=== PATIENT | female | born 1960 | race Caucasian/White ===

== ENCOUNTER 2019-02-07 11:30 | Emergency (ER) | payer BC, OTHER ==
[2019-02-07 11:47] VITALS: BP 160/102
--- NOTE | 2019-02-07 11:58 | EDM.PDOC ---
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 She slipped on ice and fell forward and landed on her left knee, felt some sharp pain in her left pelvis and the left buttock posteriorly. the pain has gradually got worse. She [place] been able to walk. but hurts over the lateral aspect of the pelvis and left buttock to bear weight on the left side. She does claim the pain radiates from the posterior buttock into the posterolateral aspect of the left thigh. No tingling, numbness, weakness or loss of function in the left lower extremity. No incontinence of stool or urine. No saddle numbness. Onset: Gradual Onset Date: 02/02/19 Location: Reports: Back, Pelvis Quality: Reports: Ache Severity: Moderate Improves with: Reports: Immobilization, Rest Worsens with: Reports: Movement Associated Symptoms: Denies: Confusion, Chest Pain, Cough, Diaphoresis, Fever/ Chills, Malaise, Nausea/Vomiting, Rash, Seizure, Shortness of Breath, Syncope, Weakness Treatments CATERING CHEF: Reports: Other (see below) Other Treatments CATERING CHEF: motrin 800mg bid - Related Data Allergies Allergy/AdvReac Type Severity Reaction Status Date / Time Prednisone Allergy Bleeding Uncoded 06/26/16 13:51 Past Medical History HEENT History: Reports: Other (See Below) Other HEENT History: nearsightedness Cardiovascular History: Reports: Hypertension Other Cardiovascular History: problems with her mitral valve Respiratory History: Reports: COPD Other Musculoskeletal History: cartilage removoed from RT arm Neurological History: Reports: Migraines Dermatologic History: Reports: Seborrheic Dermatitis - Past Surgical History HEENT Surgical History: Reports: None Review of Systems - Review of Systems Review Of Systems: See Below Constitutional: Denies: Chills, Fever Eyes: Denies: Vision Change Ears: Denies: Pain Nose: Denies: Clots, Congestion, Epistaxis Mouth/Throat: Denies: Bleeding Respiratory: Denies: Shortness of Breath, Cough, Sputum Cardiovascular: Denies: Chest Pain, Syncope GI/Abdominal: Denies: Nausea, Vomiting Genitourinary: Denies: Dysuria Musculoskeletal: Reports: Back Pain, Muscle Pain. Denies: Shoulder Pain, Foot Pain, Joint Swelling Skin: Denies: Bruising, Pruritis, Rash Neurological: Denies: Confusion, Numbness, Tingling, Difficulty Walking, Weakness ED EXAM, GENERAL - Physical Exam Exam: See Below Exam Limited By: No Limitations General Appearance: Alert, WD/WN, No Apparent Distress Eye Exam: Bilateral Eye: EOMI, PERRL Ears: Normal External Exam, Normal Canal, Hearing Grossly Normal, Normal TMs Ear Exam: Bilateral Ear: Auricle Normal, Canal Normal, TM normal Nose: Normal Inspection, Normal Mucosa, No Blood Throat/Mouth: Normal Inspection, Normal Lips, Normal Teeth, Normal Gums, Normal Oropharynx, Normal Voice, No Airway Compromise Head: Atraumatic, Normocephalic Neck: Normal Inspection, Supple, Non-Tender, Full Range of Motion Respiratory/Chest: No Respiratory Distress, Lungs Clear, Normal Breath Sounds, No Accessory Muscle Use, Chest Non-Tender Cardiovascular: Normal Peripheral Pulses, Regular Rate, Rhythm, No Edema, No Gallop, No JVD, No Murmur, No Rub Back Exam: Normal Inspection, Decreased Range of Motion, Muscle Spasm (left buttock), Other (pt is tender all over the lateral pelvis and over the sacrum to palpation. ). No: CVA Tenderness (R), CVA Tenderness (L), Paraspinal Tenderness, Vertebral Tenderness Neurological: Alert, Oriented, Normal Gait Course - Vital Signs Text/Narrative:: The fall happened 5 days ago. Patient has been walking and weight bearing. The pain is diffused over the left buttock and sacral region.Her pelvis x-ray and her sacral x-ray are negative for fracture. Pelvis x-ray does show arthritic changes in her left hip. she probably has left gluteal muscle spasms.Pt started on diclofenac sodium 50mg 3 times daily and Flexeril 10mg at bedtime for 1 wk. Advised intermittent heat. Pain should gradually improve. I have advised patient to followup with Ortho regarding the arthritis of left hip joint. Last Recorded V/S: Last Vital Signs Temp 96 F 02/07/19 11:46 Pulse 100 02/07/19 11:46 Resp 20 02/07/19 11:46 BP 160/102 H 02/07/19 11:46 Pulse Ox 99 02/07/19 11:46 - Orders/Labs/Meds Orders: Active Orders 24 hr Category Date Time Status Pelvis 1V or 2V [CR] Stat Exams 02/07/19 11:42 Ordered Sacrum Coccyx Min 2V [CR] Stat Exams 02/07/19 11:42 Ordered Departure - Departure Time of Disposition: 12:45 Disposition: Home, Self-Care 01 Condition: Fair Clinical Impression: Muscle strain of left gluteal region - Discharge Information *PRESCRIPTION DRUG MONITORING PROGRAM REVIEWED*: Not Applicable *COPY OF PRESCRIPTION DRUG MONITORING REPORT IN PATIENT MADONNA: Not Applicable Instructions: Muscle Cramps and Spasms, [id number], Cyclobenzaprine tablets, Diclofenac immediate-release tablets Referrals: PCP,None [Primary Care Provider] - Forms: ED Department Discharge Additional Instructions: Will fax note for patient to be off of work to [employer]. Patient to call with fax # Care Plan Goals: Take flexaril 10mg at bedtime for 10 days. Take diclofenac 50 mg 3 x day (no ibuprofen or naproxen), intermittent heat 20 minutes of an hour every 3 to 4 hours. Do not sleep on heating pad. Follow up with orthopedist regarding left hip arthritis. - Problem List & Annotations (1) Muscle strain of left gluteal region SNOMED Code(s): 76257915 Code(s): S76.012A - STRAIN OF MUSCLE, FASCIA AND TENDON OF LEFT HIP, INIT ENCNTR Status: Acute - Problem List Review Problem List Initiated/Reviewed/Updated: Yes - My Orders Last 24 Hours: My Active Orders 02/07/19 11:42 Pelvis 1V or 2V [CR] Stat Sacrum Coccyx Min 2V [CR] Stat - Assessment/Plan Last 24 Hours: My Active Orders 02/07/19 11:42 Pelvis 1V or 2V [CR] Stat Sacrum Coccyx Min 2V [CR] Stat Assessment:: left gluteal muscle spasm Plan: The fall happened 5 days ago. Patient has been walking and weight bearing. The pain is diffused over the left buttock and sacral region.Her pelvis x-ray and her sacral x-ray are negative for fracture. Pelvis x-ray does show arthritic changes in her left hip. she probably has left gluteal muscle spasms.Pt started on diclofenac sodium 50mg 3 times daily and Flexeril 10mg at bedtime for 1 wk. Advised intermittent heat. Pain should gradually improve. I have advised patient to followup with Ortho regarding the arthritis of left hip joint.
--- NOTE | 2019-02-07 15:47 | CR ---
Date of Service: 02/07/19 Clinical Data: AP PELVIS: There are moderate osteoarthritic changes involving the hip joints bilaterally. There are degenerative changes involving the SI joints and symphysis pubis. There is degenerative disk disease at multiple levels in the lower lumbar spine. No acute abnormalities. No focal lytic or blastic bone lesions. [id number] [facility]
--- NOTE | 2019-02-07 15:51 | CR ---
Date of Service: 02/07/19 Clinical Data: SACRUM AND COCCYX: There is diffuse osteopenia. There are degenerative changes involving the SI joints bilaterally. No acute abnormalities. No focal lytic or blastic bone lesions. There is degenerative disk disease throughout the visualized lumbar spine with disk space narrowing diffusely. There is facet joint hypertrophy in the lower lumbar spine. [id number] [facility]
== END 2019-02-07 12:35 | disposition home or self-care (01) ==
LOC: LB.ED 11:30
DX: S39.012A Strain of muscle, fascia and tendon of lower back, initial encounter (principal); I10 Essential (primary) hypertension; J44.9 Chronic obstructive pulmonary disease, unspecified; Z88.8 Allergy status to other drugs, medicaments and biological substances; W00.0XXA Fall on same level due to ice and snow, initial encounter
CPT/HCPCS: 72170; 72220; 99283-25

== ENCOUNTER 2019-09-16 14:43 | Emergency (ER) | payer OTHER ==
[2019-09-16 14:59] VITALS: BP 147/96; PULSE 110
[2019-09-16] MEDS: Ketorolac 30 MG/ML SDV IM ONE (15:25)
--- NOTE | 2019-09-16 16:53 | ER ---
REASON FOR EMERGENCY ROOM VISIT: Low back pain. HISTORY OF PRESENT ILLNESS: This is a 59-year-old woman who works as a resort housekeeper for a local resort has a history of low back pain dating back to January of this year. At that time, she sustained an injury to her hip and back area subsequent to a fall on the ice. She did undergo an MRI of her hip and only showed arthritis. She saw initially a chiropractor who told her she had a "ruptured disk" but no CT or MRI was ever performed of her lower back. She has subsequently seen David Wahl and Dr. Ruffin for this intermittently over the months since then. She states that she has been on Flexeril for this in the past, but it has not helped. She actually came into the emergency room today because she had been taking oral Toradol and her prescription ran out a couple of days ago and she was hoping to get a refill of this. She describes her back pain primarily as being most bothersome in a band- like distribution around her lower back area bilaterally. She does get some radiation on occasion down her left buttock and her posterior thigh on the left side. She denies any numbness or muscle weakness associated with this. She has tried ibuprofen and it has helped "a little" but Toradol seems to work better and this is what she has been taking. She is aware that she is only supposed to take Toradol no more than 5 days at a time orally. She states she is supposed to have an MRI scheduled for her lower back, but she has not been notified as to when she is supposed to have that study done. PAST MEDICAL HISTORY: Remarkably unremarkable. She is a smoker. MEDICATIONS: None. ALLERGIES: TO PREDNISONE. REVIEW OF SYSTEMS: Pertinent positives and negatives as noted in the HPI. PHYSICAL EXAMINATION: GENERAL: She is standing because this is more comfortable for her in this position. She is in no acute distress. VITAL SIGNS: She is afebrile. Blood pressure 147/96, pulse 110, respirations 20, O2 sats 99. SPINE: She does seem to have some increases in the paraspinal muscle spasms, particularly in the lower lumbar area, but not markedly so. She has no tenderness to percussion or palpation of the spinous processes or on either side. There is no tenderness to palpation over these sacroiliac areas. Straight leg raising is negative. Lower extremity deep tendon reflexes are symmetrical and normal. Sensation is intact. Muscle strength is normal and symmetrical bilaterally in both lower extremities including flexors and extensors. ABDOMEN: Reveals no pulsatile mass or other pelvic masses. IMPRESSION: Low back pain. PLAN: I cautioned her on long-term use of Toradol, and I gave her my usual recommendation for lower back pain, which consisted of ibuprofen at a higher dose around the clock for 3-4 days. For her this would be 600 mg every 8 hours because she is a very small woman. In addition to this, heat or cold treatment depending on which produces more symptomatic relief. I emphasized the importance of maintaining normal activity, but to avoid real strenuous activity being up and around is the best thing that she can do if at all possible, prolonged immobilization will only worsen her problem. I also illustrated to her some stretching exercises that I customarily I would advise for patient's and had her demonstrate them to me in the emergency department. In her case, I think given the history of trauma and the intractability of her symptoms and her desire to be able to continue working, I think an MRI at this point is sensible and I advised her to get in touch with her provider David wahl for any further prescriptions and more importantly the MRI and follow up. We did go ahead and give her Toradol 30 mg IM x1. She understands and agrees with this. All questions were answered. LI /[id number] BRANDEN
== END 2019-09-16 15:33 | disposition home or self-care (01) ==
LOC: LB.ED 14:43
DX: M54.5 Low back pain (principal); F17.200 Nicotine dependence, unspecified, uncomplicated; Z88.8 Allergy status to other drugs, medicaments and biological substances
CPT/HCPCS: 96372; 99283; J1885

== ENCOUNTER → 2019-09-18 | Outpatient (CLI) | payer OTHER ==
--- NOTE | 2019-09-23 15:43 | CRLMR ---
DATE OF SERVICE: 09/18/19 CLINICAL DATA: Low back pain LUMBAR SPINE MRI: Routine MR protocol. No priors. The sagittal images demonstrate degeneration and dehydration of all the discs from T12-S1 with disc space narrowing diffusely. There are discogenic end plate changes of the vertebral end plates at multiple levels. There are Schmorl's nodes in the vertebral body end plates at multiple levels. There is a small extruded disc at the T12-L1 level with extruded disc material that extends above the disc level along the posterior margin of T12. It does produce ventral effacement of the dural sac. It is only visualized on the sagittal images and was not included on the axial images. There is mild annular bulging of the L1-2 disc. It does produce ventral effacement of the dural sac. No significant central or foraminal stenosis. There is slight retrolisthesis of L2 on L3. There is annular bulging of the L2- 3 disc. It does produce ventral effacement of the dural sac. There is facet joint and ligamentum flavum hypertrophy at this level. Mild central spinal stenosis and mild neural foraminal stenosis bilaterally. There is annular bulging of the L3-4 disc with a broad-based disc protrusion that is posterolateral and lateral on the left. It does encroach the lateral recess on the left and encroaches the neural foramen on the left. There is facet joint and ligamentum flavum hypertrophy at this level. There is mild neural foraminal stenosis on the right and moderate neural foraminal stenosis on the left. There is annular bulging of the L4-5 disc. There is facet joint and ligamentum flavum hypertrophy at this level. There is mild central stenosis and mild neural foraminal stenosis on the left. There is moderate neural foraminal stenosis on the right. There is annular bulging of the L5-S1 disc with a central disc protrusion that is eccentric to the left. It does produce ventral effacement of the dural sac and contacts and displaces the left S1 nerve root. There is facet joint hypertrophy at this level. There is mild to moderate neural foraminal stenosis on the right and moderately severe neural foraminal stenosis on the left. No other significant findings. The spinal cord terminates at the L1 level. [id number] [facility]
== END ==
LOC: LB.MRI 10:32
PROVIDERS: ATTEND Nurse Practitioner Family
DX: M54.5 Low back pain (principal)
CPT/HCPCS: 72148